=== PATIENT | female | born 1955 | race Caucasian/White ===

== ENCOUNTER → 2016-04-05 | Outpatient (CLI) | payer OTHER | LOC: LAB 09:50 | PROVIDERS: ATTEND Orthopaedic Surgery Adult Reconstructive Orthopaedic Surgery | DX: Z79.01 Long term (current) use of anticoagulants (principal) | CPT/HCPCS: 36415; 85610 ==

== ENCOUNTER → 2016-07-20 | Outpatient (CLI) | payer OTHER ==
[2016-07-20 11:26] LABS: HEMATOCRIT 43.6 % (37.0-47.0); HEMOGLOBIN 13.9 g/dL (12.0-16.0); MEAN CORPUSCULAR HEMOGLOBIN 25.9 PG (27-31); MEAN CORPUSCULAR HGB CONC 31.9 g/dL (33-37); MEAN CORPUSCULAR VOLUME 81.2 FL (81-99); MEAN PLATELET VOLUME 9.9 FL (7.4-12.2); RED BLOOD COUNT 5.37 10^6/uL (4.20-5.40)
[2016-07-20 11:42] LABS: BLOOD UREA NITROGEN 12 mg/dL (7-22); BUN/CREATININE RATIO 17.14 (6-20); CHOL/HDL RATIO 3.41 RATIO (0-4.0); EST GLOMERULAR FILTRATION > 60 (>60 ml/min/1.73m(2)); HDL CHOLESTEROL 51 mg/dL (40-150); SERUM ALBUMIN 4.5 g/dL (3.5-4.8); SERUM CHOLESTEROL 174 mg/dL (120-200)
--- NOTE | 2016-07-20 12:50 | DI ---
LUMBAR SPINE SERIES, 07/20/2016 11:17 AM: Clinical History: Low back pain. Previous Exam: None at this facility. 5 routine upright views are submitted. The patient is status post laminectomies from L2-L5 with anter ior and posterior fusions from L2-3 through L5-S1. The anterior fusions appear solid. Posterior fusio ns are accomplished with metallic struts transfixed with pedicle screws between L2 and S1. There is e ither a bone or I nerve stimulating device present on each side of the metallic struts. There may be bone grafts present although this is not certain. There is severe disc space narrowing at L1-2 with s clerosis on both sides of the disc space. The pedicles at L1 are normal. Both SI joints are normal. Readin. Status post laminectomies from L2-L5 with anterior and posterior fusions between L2-3 and L5-S1. 2. Severe disc space narrowing with sclerosis of the respective endplates at L1-2.
== END ==
LOC: LAB 11:11
PROVIDERS: ATTEND Obstetrics & Gynecology Gynecology
DX: E78.00 Pure hypercholesterolemia, unspecified (principal); R42 Dizziness and giddiness; Z79.899 Other long term (current) drug therapy
CPT/HCPCS: 36415; 72110; 80053; 80061; 85027